=== PATIENT | female | born 1950 | race Caucasian/White ===

== ENCOUNTER → 2024-08-28 14:00 | Outpatient (BNV) | payer MEDICARE, MEDICAID, SELFPAY | PROVIDERS: Visit Provider Psychiatry & Neurology Psychiatry | DX: F33.2 Major depressive disorder, recurrent severe without psychotic features (principal) | CPT/HCPCS: 90868; 90869 ==

== ENCOUNTER 2024-10-18 09:30 | Outpatient (RCR) | payer MEDICARE, MEDICAID, SELFPAY ==
--- NOTE | 2024-08-27 13:06 | P.CONTMS_ITS ---
History of Present Illness General Data Date of Service: 08/27/2024 Reason for consult: Depression History of Present Illness Pt is a 73 yo woman referred by Dr. Bhanu Farrar for a TMS consult due to patients depression; She reports significant difficulty with concentration, energy, fatigue, motivation, anhedonia, appetite and sleep. She reports her symptoms worsened after 2 hip surgeries this past year; she also feels that one dose of fentanyl caused severe side effects and has made it harder for her to think since she had fentanyl. Pt reports a long history of PTSD and ADHD. She became depressed in 2021 and successfully had TMS with good results; She was stable for some time until her second hip surgery this year. PHQ9= 13 and GAD7 = 14. Pt denies SI or HI. Pt denies hx seizures. Pt denies caridac disease. Pt denies any metal implants above the waist. She does have metal implants in her hips. Past Psychiatric History/Medication Trials: Outpt in past; trials of lexapro and wellbutrin failed. TMS in 2021 with good results.No hx of IPLOC. Pt denies hx of suicide attempts [facility] Narrative: hx Lyme disease 20 yrs ago carpal tunnel Pt denies cardiac issues Pt denies hx of seizures Pt denies migraines Pt denies hx of head injury or brain tumors Pt denies any metal implants including pacemaker or cochlear implant Narrative: bilat hip replacements 2024 Family History: lives alone; has 2 adult daughter and grandchildren and great- grandchildren; pt attend s Synagogue on regular basis Social History: pentecostalism and family supportive Substance History: none for pt; family hx of ETOHISM Trauma History: yes, childhood and adulthood Meds/Allergies Meds Narrative: adderall 20 mg TID Allergies Allergies Allergy/AdvReac Type Severity Reaction Status Date / Time No Known Allergies Allergy Verified 08/27/24 15:14 Mental Status Exam Mental Status Exam Patient Appearance: Well Grooomed and Appropriate Patient Orientation: Person, Place, Time and Situation Level of Consciousness: Awake, Appropriate and Alert Patient Behavior: Appropriate and Cooperative Mood Description: Depressed Affect Description: Withdrawn and Depressed Patient Cognition Impaired: No Ability to Follow Directions: Good Speech Pattern: Clear, Appropriate and Coherent Memory Description: Intact Hallucinations: None Delusions: Not Present Thought Process: Intact and Goal Oriented Thought Content: positive for Intact and positive for Goal Oriented Judgement: Good Assessment & Plan Assessment & Plan (1) Major depressive disorder, recurrent severe without psychotic features: Status: Acute Code(s): F33.2 - Major depressive disorder, recurrent severe without psychotic features Plan Pt is candidate for TMS given severity of depression symptoms and lack of positive response to medications; she has had TMS in past with very positive res ults. She has no metal implants above the waist; she had bilateral hip replacements which she states included some metal hardware. She has no other metal implants including pacemaker or cochlear implants. She denies seizures, She denies headaches or cardiac issues; she denies any periods of willie or psychosis. Plan: start TMS treatment l Total time managing care of this patient today _90__ minutes. Patient educated on: diagnosis, TMS and therapeutic strategies Informed Consent: understands
--- NOTE | 2024-08-28 16:26 | P.PNPS_ITS ---
TMS Daily Progress Note Daily TMS Progress Note Date of Service: 08/28/24 Week #: 1 Treatment #(04-11): 1 PHQ-9 Pre-Treatment (-): 13 PHQ-9 Most Recent (04-08): 13 TIGRE-7 Pre-Treatment (0-21): 14 TIGRE-7 Most Recent (0-21): 14 Q-LES-Q-SF Most Recent: 49 Reviewed: TMS Mapping/Re-mapping completed Verification: I have reviewed the TMS Ultrasound Tech Note and agree with the contents. The patient remains a candidate to continue TMS treatment per protocol. Assessment and Plan (1) Major depressive disorder, recurrent severe without psychotic features: Status: Acute Plan continue Tx Total time managing care of this patient today: 45 minutes.
--- NOTE | 2024-09-02 12:48 | HO.TMSDAILY2 ---
TMS Daily Progress Note Daily TMS Progress Note Date of Service: 09/02/24 Week #: 1 Treatment #(04-11): 2 PHQ-9 Pre-Treatment (-): 13 PHQ-9 Most Recent (04-08): 13 TIGRE-7 Pre-Treatment (0-21): 14 TIGRE-7 Most Recent (0-21): 14 CGI-I Most Recent: 0 = Not Assessed Q-LES-Q-SF Most Recent: 49 Reviewed: TMS Tech Note Reviewed Verification: I have reviewed the TMS Collar Turner Operator Note and agree with the contents. The patient remains a candidate to continue TMS treatment per protocol. Assessment and Plan (1) Major depressive disorder, recurrent severe without psychotic features: Status: Acute Plan continue TMS tx plan
--- NOTE | 2024-09-02 12:49 | HO.TMSDAILY2 ---
TMS Daily Progress Note Daily TMS Progress Note Date of Service: 09/02/24 Week #: 1 Treatment #(04-11): 4 PHQ-9 Pre-Treatment (-): 13 PHQ-9 Most Recent (04-08): 13 TIGRE-7 Pre-Treatment (0-21): 14 TIGRE-7 Most Recent (0-21): 7 CGI-I Most Recent: 0 = Not Assessed Q-LES-Q-SF Most Recent: 49 Reviewed: TMS Tech Note Reviewed Verification: I have reviewed the TMS Glassworker Note and agree with the contents. The patient remains a candidate to continue TMS treatment per protocol. Assessment and Plan (1) Major depressive disorder, recurrent severe without psychotic features: Status: Acute Plan Continue TMS tx plan
--- NOTE | 2024-09-03 16:16 | HO.TMSDAILY2 ---
TMS Daily Progress Note Daily TMS Progress Note Date of Service: 09/03/24 Week #: 1 Treatment #(04-11): 5 PHQ-9 Pre-Treatment (-): 13 PHQ-9 Most Recent (04-08): 13 TIGRE-7 Pre-Treatment (0-21): 14 TIGRE-7 Most Recent (0-21): 7 CGI-I Most Recent: 0 = Not Assessed Q-LES-Q-SF Most Recent: 49 Reviewed: TMS Tech Note Reviewed Verification: I have reviewed the TMS Tractor Sweeper Operator Note and agree with the contents. The patient remains a candidate to continue TMS treatment per protocol. Assessment and Plan (1) Major depressive disorder, recurrent severe without psychotic features: Status: Acute Plan continue tms tx plan
--- NOTE | 2024-09-09 10:52 | HO.TMSDAILY2 ---
TMS Daily Progress Note Daily TMS Progress Note Date of Service: 09/09/24 Week #: 2 Treatment #(04-11): 7 PHQ-9 Pre-Treatment (-): 13 PHQ-9 Most Recent (04-08): 13 TIGRE-7 Pre-Treatment (0-21): 14 TIGRE-7 Most Recent (0-21): 7 CGI-I Most Recent: 0 = Not Assessed Q-LES-Q-SF Most Recent: 49 Reviewed: TMS Tech Note Reviewed Verification: I have reviewed the TMS Roof Cement And Paint Maker Helper Note and agree with the contents. The patient remains a candidate to continue TMS treatment per protocol. Assessment and Plan (1) Major depressive disorder, recurrent severe without psychotic features: Status: Acute Plan Continue TMS treatment as planned
--- NOTE | 2024-09-09 10:54 | HO.TMSDAILY2 ---
TMS Daily Progress Note Daily TMS Progress Note Date of Service: 09/09/24 Week #: 2 Treatment #(04-11): 8 PHQ-9 Pre-Treatment (-): 13 PHQ-9 Most Recent (04-08): 13 TIGRE-7 Pre-Treatment (0-21): 14 TIGRE-7 Most Recent (0-21): 6 CGI-I Most Recent: 0 = Not Assessed Q-LES-Q-SF Most Recent: 49 Reviewed: TMS Tech Note Reviewed Verification: I have reviewed the TMS Adult High School Instructor Note and agree with the contents. The patient remains a candidate to continue TMS treatment per protocol. Assessment and Plan (1) Major depressive disorder, recurrent severe without psychotic features: Status: Acute Plan continue TMS tx plan
--- NOTE | 2024-09-10 12:57 | P.PNPS_ITS ---
TMS Daily Progress Note Daily TMS Progress Note Date of Service: 09/10/24 Week #: 2 Treatment #(04-11): 9 PHQ-9 Pre-Treatment (-): 13 PHQ-9 Most Recent (04-08): 13 TIGRE-7 Pre-Treatment (0-21): 14 TIGRE-7 Most Recent (0-21): 6 CGI-I Most Recent: 0 = Not Assessed Q-LES-Q-SF Most Recent: 49 Reviewed: TMS Tech Note Reviewed Verification: I have reviewed the TMS Production Generalist Note and agree with the contents. The patient remains a candidate to continue TMS treatment per protocol. Assessment and Plan (1) Major depressive disorder, recurrent severe without psychotic features: Status: Acute Plan Continue TMS treatment plan
--- NOTE | 2024-09-16 09:47 | P.PNPS_ITS ---
TMS Daily Progress Note Daily TMS Progress Note Date of Service: 09/12/24 Week #: 3 Treatment #(04-11): 11 PHQ-9 Pre-Treatment (-): 13 PHQ-9 Most Recent (04-08): 13 TIGRE-7 Pre-Treatment (0-21): 14 TIGRE-7 Most Recent (0-21): 6 CGI-I Most Recent: 0 = Not Assessed Q-LES-Q-SF Most Recent: 49 Reviewed: TMS Tech Note Reviewed Verification: I have reviewed the TMS Power Driven Brush Maker Note and agree with the contents. The patient remains a candidate to continue TMS treatment per protocol. Assessment and Plan (1) Major depressive disorder, recurrent severe without psychotic features: Status: Acute Plan Continue TMS treatment plan
--- NOTE | 2024-09-16 09:48 | P.PNPS_ITS ---
TMS Daily Progress Note Daily TMS Progress Note Date of Service: 09/16/24 Week #: 3 Treatment #(04-11): 12 PHQ-9 Pre-Treatment (-): 13 PHQ-9 Most Recent (04-08): 11 TIGRE-7 Pre-Treatment (0-21): 14 TIGRE-7 Most Recent (0-21): 4 CGI-I Most Recent: 0 = Not Assessed Q-LES-Q-SF Most Recent: 49 Reviewed: TMS Tech Note Reviewed Verification: I have reviewed the TMS Turbine Attendant Note and agree with the contents. The patient remains a candidate to continue TMS treatment per protocol. Assessment and Plan (1) Major depressive disorder, recurrent severe without psychotic features: Status: Acute Plan Continue TMS treatment plan
--- NOTE | 2024-09-20 13:25 | HO.TMSDAILY2 ---
TMS Daily Progress Note Daily TMS Progress Note Date of Service: 09/20/24 Week #: 4 Treatment #(04-11): 16 PHQ-9 Pre-Treatment (-): 13 PHQ-9 Most Recent (04-08): 11 TIGRE-7 Pre-Treatment (0-21): 14 TIGRE-7 Most Recent (0-21): 4 CGI-I Most Recent: 0 = Not Assessed Q-LES-Q-SF Most Recent: 49 Reviewed: TMS Tech Note Reviewed Verification: I have reviewed the TMS Knitting Inspector Note and agree with the contents. The patient remains a candidate to continue TMS treatment per protocol. Assessment and Plan (1) Major depressive disorder, recurrent severe without psychotic features: Status: Acute
--- NOTE | 2024-09-30 16:58 | HO.TMSDAILY2 ---
TMS Daily Progress Note Daily TMS Progress Note Date of Service: 09/17/24 Week #: 3 Treatment #(04-11): 13 PHQ-9 Pre-Treatment (-): 13 PHQ-9 Most Recent (04-08): 11 TIGRE-7 Pre-Treatment (0-21): 14 TIGRE-7 Most Recent (0-21): 4 CGI-I Most Recent: 0 = Not Assessed Q-LES-Q-SF Most Recent: 49 Reviewed: TMS Tech Note Reviewed Verification: I have reviewed the TMS Car Shakeout Operator Note and agree with the contents. The patient remains a candidate to continue TMS treatment per protocol. Assessment and Plan (1) Major depressive disorder, recurrent severe without psychotic features: Status: Acute Plan Continue TMS plan
--- NOTE | 2024-09-30 17:02 | P.PNPS_ITS ---
TMS Daily Progress Note Daily TMS Progress Note Date of Service: 09/19/24 Week #: 3 Treatment #(04-11): 15 PHQ-9 Pre-Treatment (-): 13 PHQ-9 Most Recent (04-08): 11 TIGRE-7 Pre-Treatment (0-21): 14 TIGRE-7 Most Recent (0-21): 4 CGI-I Most Recent: 0 = Not Assessed Q-LES-Q-SF Most Recent: 49 Reviewed: TMS Tech Note Reviewed Verification: I have reviewed the TMS Zoology Professor Note and agree with the contents. The patient remains a candidate to continue TMS treatment per protocol. Assessment and Plan (1) Major depressive disorder, recurrent severe without psychotic features: Status: Acute Plan Continue TMS plan
--- NOTE | 2024-09-30 17:03 | P.PNPS_ITS ---
TMS Daily Progress Note Daily TMS Progress Note Date of Service: 09/23/24 Week #: 4 Treatment #(04-11): 17 PHQ-9 Pre-Treatment (-): 13 PHQ-9 Most Recent (04-08): 11 TIGRE-7 Pre-Treatment (0-21): 14 TIGRE-7 Most Recent (0-21): 4 CGI-I Most Recent: 0 = Not Assessed Q-LES-Q-SF Most Recent: 49 Reviewed: TMS Tech Note Reviewed Verification: I have reviewed the TMS Mandrel Press Hand Note and agree with the contents. The patient remains a candidate to continue TMS treatment per protocol. Assessment and Plan (1) Major depressive disorder, recurrent severe without psychotic features: Status: Acute Plan Continue TMS plan
--- NOTE | 2024-09-30 17:04 | P.PNPS_ITS ---
TMS Daily Progress Note Daily TMS Progress Note Date of Service: 09/24/24 Week #: 4 Treatment #(-): 18 PHQ-9 Pre-Treatment (-): 13 PHQ-9 Most Recent (04-08): 9 TIGRE-7 Pre-Treatment (0-21): 14 TIGRE-7 Most Recent (0-21): 4 CGI-I Most Recent: 0 = Not Assessed Q-LES-Q-SF Most Recent: 49 Reviewed: TMS Tech Note Reviewed Verification: I have reviewed the TMS Show Card Letterer Note and agree with the contents. The patient remains a candidate to continue TMS treatment per protocol. Assessment and Plan (1) Major depressive disorder, recurrent severe without psychotic features: Status: Acute Plan Continue TMS plan
--- NOTE | 2024-09-30 17:05 | P.PNPS_ITS ---
TMS Daily Progress Note Daily TMS Progress Note Date of Service: 09/26/24 Week #: 4 Treatment #(-): 20 PHQ-9 Pre-Treatment (-): 13 PHQ-9 Most Recent (04-08): 9 TIGRE-7 Pre-Treatment (0-21): 14 TIGRE-7 Most Recent (0-21): 4 CGI-I Most Recent: 0 = Not Assessed Q-LES-Q-SF Most Recent: 49 Reviewed: TMS Tech Note Reviewed Verification: I have reviewed the TMS Semi Truck Driver Note and agree with the contents. The patient remains a candidate to continue TMS treatment per protocol. Assessment and Plan (1) Major depressive disorder, recurrent severe without psychotic features: Status: Acute Plan Continue TMS plan
--- NOTE | 2024-09-30 17:08 | P.PNPS_ITS ---
TMS Daily Progress Note Daily TMS Progress Note Date of Service: 09/30/24 Week #: 5 Treatment #(-): 22 PHQ-9 Pre-Treatment (-): 13 PHQ-9 Most Recent (04-08): 7 TIGRE-7 Pre-Treatment (0-21): 14 TIGRE-7 Most Recent (0-21): 4 CGI-I Most Recent: 0 = Not Assessed Q-LES-Q-SF Most Recent: 49 Reviewed: TMS Tech Note Reviewed Verification: I have reviewed the TMS Process Control Operator Note and agree with the contents. The patient remains a candidate to continue TMS treatment per protocol. Assessment and Plan (1) Major depressive disorder, recurrent severe without psychotic features: Status: Acute Plan Continue TMS plan
--- NOTE | 2024-10-03 17:43 | P.PNPS_ITS ---
TMS Daily Progress Note Daily TMS Progress Note Date of Service: 10/03/24 Week #: 5 Treatment #(-): 25 PHQ-9 Pre-Treatment (-): 13 PHQ-9 Most Recent (04-08): 7 TIGRE-7 Pre-Treatment (0-21): 14 TIGRE-7 Most Recent (0-21): 4 CGI-I Most Recent: 0 = Not Assessed Q-LES-Q-SF Most Recent: 49 Reviewed: TMS Tech Note Reviewed Verification: I have reviewed the TMS Heavy Media Operator Note and agree with the contents. The patient remains a candidate to continue TMS treatment per protocol. Assessment and Plan (1) Major depressive disorder, recurrent severe without psychotic features: Status: Acute Plan Continue TMS plan
--- NOTE | 2024-10-07 15:30 | HO.TMSDAILY2 ---
TMS Daily Progress Note Daily TMS Progress Note Date of Service: 10/01/24 Week #: 5 Treatment #(-): 23 PHQ-9 Pre-Treatment (-): 13 PHQ-9 Most Recent (04-08): 7 TIGRE-7 Pre-Treatment (0-21): 14 TIGRE-7 Most Recent (0-21): 4 CGI-I Most Recent: 0 = Not Assessed Q-LES-Q-SF Most Recent: 49 Reviewed: TMS Tech Note Reviewed Verification: I have reviewed the TMS Director Of Sales And Marketing Note and agree with the contents. The patient remains a candidate to continue TMS treatment per protocol. Assessment and Plan (1) Major depressive disorder, recurrent severe without psychotic features: Status: Acute Plan Continue TMS plan
--- NOTE | 2024-10-08 13:09 | HO.TMSDAILY2 ---
TMS Daily Progress Note Daily TMS Progress Note Date of Service: 10/07/24 Week #: 6 Treatment #(-): 27 PHQ-9 Pre-Treatment (1-): 13 PHQ-9 Most Recent (04-08): 7 TIGRE-7 Pre-Treatment (0-21): 14 TIGRE-7 Most Recent (0-21): 3 CGI-I Most Recent: 0 = Not Assessed Q-LES-Q-SF Most Recent: 49 Reviewed: TMS Tech Note Reviewed Verification: I have reviewed the TMS Aerospace Engineer Officer Armament Note and agree with the contents. The patient remains a candidate to continue TMS treatment per protocol. Assessment and Plan (1) Major depressive disorder, recurrent severe without psychotic features: Status: Acute Plan Continue TMS plan
--- NOTE | 2024-10-08 13:10 | HO.TMSDAILY2 ---
TMS Daily Progress Note Daily TMS Progress Note Date of Service: 10/08/24 Week #: 6 Treatment #(04-11): 28 PHQ-9 Pre-Treatment (-): 13 PHQ-9 Most Recent (04-08): 7 TIGRE-7 Pre-Treatment (0-21): 14 TIGRE-7 Most Recent (0-21): 3 CGI-I Most Recent: 0 = Not Assessed Q-LES-Q-SF Most Recent: 49 Reviewed: TMS Tech Note Reviewed Verification: I have reviewed the TMS Chief Deputy Court Clerk Note and agree with the contents. The patient remains a candidate to continue TMS treatment per protocol. Assessment and Plan (1) Major depressive disorder, recurrent severe without psychotic features: Status: Acute Plan Continue TMS plan
--- NOTE | 2024-10-10 15:34 | P.PNPS_ITS ---
TMS Daily Progress Note Daily TMS Progress Note Date of Service: 10/10/24 Week #: 6 Treatment #(-): 30 PHQ-9 Pre-Treatment (-): 13 PHQ-9 Most Recent (04-08): 7 TIGRE-7 Pre-Treatment (0-21): 14 TIGRE-7 Most Recent (0-21): 3 CGI-I Most Recent: 0 = Not Assessed Q-LES-Q-SF Most Recent: 49 Reviewed: TMS Tech Note Reviewed Verification: I have reviewed the TMS Video Surveillance Technician Note and agree with the contents. The patient remains a candidate to continue TMS treatment per protocol. Assessment and Plan (1) Major depressive disorder, recurrent severe without psychotic features: Status: Acute Plan Continue TMS plan
--- NOTE | 2024-10-14 16:58 | HO.TMSDAILY2 ---
TMS Daily Progress Note Daily TMS Progress Note Date of Service: 10/14/24 Week #: 7 Treatment #(04-11): 32 PHQ-9 Pre-Treatment (-): 13 PHQ-9 Most Recent (04-08): 7 TIGRE-7 Pre-Treatment (0-21): 14 TIGRE-7 Most Recent (0-21): 3 CGI-I Most Recent: 0 = Not Assessed Q-LES-Q-SF Most Recent: 49 Reviewed: TMS Tech Note Reviewed Verification: I have reviewed the TMS Quarry Supervisor Dimension Stone Note and agree with the contents. The patient remains a candidate to continue TMS treatment per protocol. Assessment and Plan (1) Major depressive disorder, recurrent severe without psychotic features: Status: Acute Plan Continue TMS plan
--- NOTE | 2024-10-17 09:58 | HO.TMSDAILY2 ---
TMS Daily Progress Note Daily TMS Progress Note Date of Service: 10/15/24 Week #: 7 Treatment #(04-11): 33 PHQ-9 Pre-Treatment (-): 13 PHQ-9 Most Recent (04-08): 7 TIGRE-7 Pre-Treatment (0-21): 14 TIGRE-7 Most Recent (0-21): 3 CGI-I Most Recent: 0 = Not Assessed Q-LES-Q-SF Most Recent: 49 Reviewed: TMS Tech Note Reviewed Verification: I have reviewed the TMS Prospecting Observer Note and agree with the contents. The patient remains a candidate to continue TMS treatment per protocol. Assessment and Plan (1) Major depressive disorder, recurrent severe without psychotic features: Status: Acute Plan Continue TMS plan
--- NOTE | 2024-10-17 09:59 | HO.TMSDAILY2 ---
TMS Daily Progress Note Daily TMS Progress Note Date of Service: 10/17/24 Week #: 8 Treatment #(04-11): 35 PHQ-9 Pre-Treatment (-): 13 PHQ-9 Most Recent (04-08): 9 TIGRE-7 Pre-Treatment (0-21): 14 TIGRE-7 Most Recent (0-21): 2 CGI-I Most Recent: 0 = Not Assessed Q-LES-Q-SF Most Recent: 49 Reviewed: TMS Tech Note Reviewed Verification: I have reviewed the TMS Mobile Development Manager Note and agree with the contents. The patient remains a candidate to continue TMS treatment per protocol. Assessment and Plan (1) Major depressive disorder, recurrent severe without psychotic features: Status: Acute Plan Pt has some anxiety about ending treatment tomorrow; has felt it is very helpful overall; her mood is much better since admission. she is having some trouble sleeping lately; feels her heart racing at night. she will follow up with her PCP. And she plans to start some magnesium glycinate 100-200 mg at bedtime. Dhe denies any SI or HI. Continue TMS plan
--- NOTE | 2024-10-22 13:18 | HO.TMSDAILY2 ---
TMS Daily Progress Note Daily TMS Progress Note Date of Service: 09/18/24 Week #: 3 Treatment #(-): 14 PHQ-9 Pre-Treatment (-): 13 PHQ-9 Most Recent (04-08): 9 TIGRE-7 Pre-Treatment (0-21): 14 TIGRE-7 Most Recent (0-21): 2 CGI-I Most Recent: 0 = Not Assessed Q-LES-Q-SF Most Recent: 49 Reviewed: TMS Tech Note Reviewed Verification: I have reviewed the TMS Cabinet Professional Note and agree with the contents. The patient remains a candidate to continue TMS treatment per protocol.
--- NOTE | 2024-11-12 15:12 | P.PNPS_ITS ---
TMS Daily Progress Note Daily TMS Progress Note Date of Service: 08/30/24 Week #: 1 Treatment #(04-11): 3 PHQ-9 Pre-Treatment (-): 13 PHQ-9 Most Recent (04-08): 13 TIGRE-7 Pre-Treatment (0-21): 14 TIGRE-7 Most Recent (0-21): 14 CGI-I Most Recent: 0 = Not Assessed Q-LES-Q-SF Most Recent: 49 Reviewed: TMS Tech Note Reviewed Verification: I have reviewed the TMS Auth Specialist Note and agree with the contents. The patient remains a candidate to continue TMS treatment per protocol. Assessment and Plan (1) Major depressive disorder, recurrent severe without psychotic features: Status: Acute Plan Patient tolerating TMS continue to increase MT percentage as tolerated.
--- NOTE | 2024-11-12 15:16 | HO.TMSDAILY2 ---
TMS Daily Progress Note Daily TMS Progress Note Date of Service: 09/04/24 Week #: 2 Treatment #(-30): 6 PHQ-9 Pre-Treatment (-): 13 PHQ-9 Most Recent (04-08): 13 TIGRE-7 Pre-Treatment (0-21): 14 TIGRE-7 Most Recent (0-21): 7 CGI-I Most Recent: 0 = Not Assessed Q-LES-Q-SF Most Recent: 49 Reviewed: TMS Tech Note Reviewed Verification: I have reviewed the TMS Ruling Machine Operator Note and agree with the contents. The patient remains a candidate to continue TMS treatment per protocol. Assessment and Plan (1) Major depressive disorder, recurrent severe without psychotic features: Status: Acute Plan Patient tolerating TMS continue to increase MT percentage as tolerated.
--- NOTE | 2024-11-12 15:19 | HO.TMSDAILY2 ---
TMS Daily Progress Note Daily TMS Progress Note Date of Service: 09/11/24 Week #: 2 Treatment #(04-11): 10 PHQ-9 Pre-Treatment (-): 13 PHQ-9 Most Recent (04-08): 13 TIGRE-7 Pre-Treatment (0-21): 14 TIGRE-7 Most Recent (0-21): 6 CGI-I Most Recent: 0 = Not Assessed Q-LES-Q-SF Most Recent: 49 Reviewed: TMS Tech Note Reviewed Verification: I have reviewed the TMS Assistant Boiler Operator Note and agree with the contents. The patient remains a candidate to continue TMS treatment per protocol. Assessment and Plan (1) Major depressive disorder, recurrent severe without psychotic features: Status: Acute Plan Patient tolerating treatment well continue plan of care has been somewhat more active
--- NOTE | 2024-11-12 15:33 | HO.TMSDAILY2 ---
TMS Daily Progress Note Daily TMS Progress Note Date of Service: 09/25/24 Week #: 4 Treatment #(-): 19 PHQ-9 Pre-Treatment (1-): 13 PHQ-9 Most Recent (04-08): 9 TIGRE-7 Pre-Treatment (0-21): 14 TIGRE-7 Most Recent (0-21): 4 CGI-I Most Recent: 0 = Not Assessed Reviewed: TMS Tech Note Reviewed Verification: I have reviewed the TMS Factory Machine Computer Operator Note and agree with the contents. The patient remains a candidate to continue TMS treatment per protocol. Assessment and Plan (1) Major depressive disorder, recurrent severe without psychotic features: Status: Acute Plan Brighten engaged during treatment, no complaints of side effects. Patient tolerating treatment well continue plan of care has been somewhat more active
--- NOTE | 2024-11-12 15:38 | P.PNPS_ITS ---
TMS Daily Progress Note Daily TMS Progress Note Date of Service: 09/27/24 Week #: 5 Treatment #(-): 21 PHQ-9 Pre-Treatment (-): 13 PHQ-9 Most Recent (04-08): 9 TIGRE-7 Pre-Treatment (0-21): 14 TIGRE-7 Most Recent (0-21): 4 CGI-I Most Recent: 0 = Not Assessed Q-LES-Q-SF Most Recent: 49 Reviewed: TMS Tech Note Reviewed Verification: I have reviewed the TMS Material Reclaimer Note and agree with the contents. The patient remains a candidate to continue TMS treatment per protocol. Assessment and Plan (1) Major depressive disorder, recurrent severe without psychotic features: Status: Acute Plan Patient continues to tolerate left right treatment still has depressive symptoms no complaints of side effects . Anxiety much improved
--- NOTE | 2024-11-12 15:40 | P.PNPS_ITS ---
TMS Daily Progress Note Daily TMS Progress Note Date of Service: 09/27/24 Week #: 5 Treatment #(-): 21 PHQ-9 Pre-Treatment (-): 13 PHQ-9 Most Recent (04-08): 9 TIGRE-7 Pre-Treatment (0-21): 14 TIGRE-7 Most Recent (0-21): 4 CGI-I Most Recent: 0 = Not Assessed Q-LES-Q-SF Most Recent: 49 Reviewed: TMS Tech Note Reviewed Verification: I have reviewed the TMS Public Events Facilities Rental Manager Note and agree with the contents. The patient remains a candidate to continue TMS treatment per protocol. Assessment and Plan (1) Major depressive disorder, recurrent severe without psychotic features: Status: Acute Plan Continue plan of care some anxiety required a pT1 and her air conditioner has been problematic lead to difficulty sleeping which contributing factor
--- NOTE | 2024-11-12 16:19 | HO.TMSDAILY2 ---
TMS Daily Progress Note Daily TMS Progress Note Date of Service: 10/02/24 Week #: 5 Treatment #(-30): 24 PHQ-9 Pre-Treatment (-): 13 PHQ-9 Most Recent (04-08): 7 TIGRE-7 Pre-Treatment (0-21): 14 TIGRE-7 Most Recent (0-21): 4 CGI-I Most Recent: 0 = Not Assessed Q-LES-Q-SF Most Recent: 49 Reviewed: TMS Tech Note Reviewed Verification: I have reviewed the TMS Esthetician Facialist Note and agree with the contents. The patient remains a candidate to continue TMS treatment per protocol. Assessment and Plan (1) Major depressive disorder, recurrent severe without psychotic features: Status: Acute Plan Patient doing better tolerating treatment significantly improved continue plan of care
--- NOTE | 2024-11-12 16:22 | HO.TMSDAILY2 ---
TMS Daily Progress Note Daily TMS Progress Note Date of Service: 10/04/24 Week #: 6 Treatment #(-30): 26 PHQ-9 Pre-Treatment (-): 13 PHQ-9 Most Recent (04-08): 7 TIGRE-7 Pre-Treatment (0-21): 14 TIGRE-7 Most Recent (0-21): 4 CGI-I Most Recent: 0 = Not Assessed Q-LES-Q-SF Most Recent: 57 Reviewed: TMS Tech Note Reviewed Verification: I have reviewed the TMS Picker Tender Helper Note and agree with the contents. The patient remains a candidate to continue TMS treatment per protocol. Assessment and Plan (1) Major depressive disorder, recurrent severe without psychotic features: Status: Acute Plan Patient doing better tolerating treatment significantly improved continue plan of care
--- NOTE | 2024-11-12 16:24 | HO.TMSDAILY2 ---
TMS Daily Progress Note Daily TMS Progress Note Date of Service: 10/09/24 Week #: 6 Treatment #(-): 29 PHQ-9 Pre-Treatment (-): 13 PHQ-9 Most Recent (04-08): 7 TIGRE-7 Pre-Treatment (0-21): 14 TIGRE-7 Most Recent (0-21): 3 CGI-I Most Recent: 0 = Not Assessed Q-LES-Q-SF Most Recent: 57 Reviewed: TMS Tech Note Reviewed Verification: I have reviewed the TMS Show Girl Note and agree with the contents. The patient remains a candidate to continue TMS treatment per protocol. Assessment and Plan (1) Major depressive disorder, recurrent severe without psychotic features: Status: Acute Plan Patient doing better tolerating treatment significantly improved continue plan of care
--- NOTE | 2024-11-12 16:27 | HO.TMSDAILY2 ---
TMS Daily Progress Note Daily TMS Progress Note Date of Service: 10/11/24 Week #: 7 Treatment #(-): 31 PHQ-9 Pre-Treatment (-): 13 PHQ-9 Most Recent (04-08): 7 TIGRE-7 Pre-Treatment (0-21): 14 TIGRE-7 Most Recent (0-21): 3 CGI-I Most Recent: 0 = Not Assessed Q-LES-Q-SF Most Recent: 57 Reviewed: TMS Tech Note Reviewed Verification: I have reviewed the TMS Invoice Control Clerk Note and agree with the contents. The patient remains a candidate to continue TMS treatment per protocol. Assessment and Plan (1) Major depressive disorder, recurrent severe without psychotic features: Status: Acute Plan Patient doing better tolerating treatment significantly improved continue plan of care
--- NOTE | 2024-11-12 16:28 | HO.TMSDAILY2 ---
TMS Daily Progress Note Daily TMS Progress Note Date of Service: 10/16/24 Week #: 8 Treatment #(04-11): 34 PHQ-9 Pre-Treatment (-): 13 PHQ-9 Most Recent (04-08): 9 TIGRE-7 Pre-Treatment (0-21): 14 TIGRE-7 Most Recent (0-21): 3 CGI-I Most Recent: 0 = Not Assessed Q-LES-Q-SF Most Recent: 62 Reviewed: TMS Tech Note Reviewed Verification: I have reviewed the TMS Latin Teacher Note and agree with the contents. The patient remains a candidate to continue TMS treatment per protocol. Assessment and Plan (1) Major depressive disorder, recurrent severe without psychotic features: Status: Acute Plan Patient was significantly improved quality of life scale no complaints of side effects
--- NOTE | 2024-11-12 16:31 | HO.TMSDAILY2 ---
TMS Daily Progress Note Daily TMS Progress Note Date of Service: 10/18/24 Week #: 8 Treatment #(04-11): 36 PHQ-9 Pre-Treatment (-): 13 PHQ-9 Most Recent (04-08): 9 TIGRE-7 Pre-Treatment (0-21): 14 TIGRE-7 Most Recent (0-21): 3 CGI-I Most Recent: 0 = Not Assessed Q-LES-Q-SF Most Recent: 62 Reviewed: TMS Tech Note Reviewed Verification: I have reviewed the TMS Repair Table Operator Note and agree with the contents. The patient remains a candidate to continue TMS treatment per protocol. Assessment and Plan (1) Major depressive disorder, recurrent severe without psychotic features: Status: Acute Plan Patient was significantly improved quality of life scale no complaints of side effects PHQ-9 does not seem to represent her treatment in initial PHQ-9 seems under valued and powered. Quality of life markedly improved
== END 2024-10-18 16:00 | disposition home or self-care (01) ==
LOC: HO.PTMS 09:30
PROVIDERS: Visit Provider Clinical Nurse Specialist Psychiatric/Mental Health
DX: F33.2 Major depressive disorder, recurrent severe without psychotic features (principal)
CPT/HCPCS: 90867; 90868